=== PATIENT | male | born 1985 | race Caucasian/White ===

== ENCOUNTER 2016-06-03 03:12 | Emergency (ER) | payer OTHER ==
[2016-06-03 06:19] LABS: HEMOGLOBIN 14.5 gm/dl (14.0-17.5); RED BLOOD COUNT 4.61 M/UL (4.20-5.50); WHITE BLOOD COUNT 12.2 K/UL (4.5-11.0)
[2016-06-03 06:36] LABS: BUN/CREATININE RATIO 12 (0-10)
== END 2016-06-03 08:15 | disposition home or self-care (01) ==
LOC: ER1 03:12
PROVIDERS: Family Medicine
DX: B34.9 Viral infection, unspecified (principal)
CPT/HCPCS: 71010; 80053; 81001; 82150; 82550; 83690; 85025; 87081; 87086; 87880; 99285

== ENCOUNTER 2020-06-06 20:06 | Emergency (ER) | payer OTHER ==
[~2020-06-06 20:06] MED LIST: HYDROCODON-ACE1 EAC2 PO; ZOFRAN ODT 4 MG4 MG SL
[2020-06-06] MEDS ORDERED: BACITRACIN-POLY15 G1 TP (22:08)
[2020-06-06] MEDS ORDERED: HYDROCODON-ACE1 EAC4 PO (22:13)
== END 2020-06-06 22:34 | disposition home or self-care (01) ==
LOC: ER1 20:06
DX: T23.101A Burn of first degree of right hand, unspecified site, initial encounter (principal); T31.0 Burns involving less than 10% of body surface; Z23 Encounter for immunization; X11.8XXA Contact with other hot tap-water, initial encounter
CPT/HCPCS: 16000; 90471; 90714; 96374; 96375; 99283; J1885; J2270; J2405; J7030